=== PATIENT | female | born 1950 | race Caucasian/White ===

== ENCOUNTER 2018-03-23 15:50 | Emergency (ER) | payer MEDICARE, OTHER ==
--- NOTE | 2018-03-23 15:53 | ER Report ---
History and Physical Time Seen By MD: 15:52 HPI/ROS CHIEF COMPLAINT: FACIAL SWELLING HISTORY OF PRESENT ILLNESS: Started with left molar/lower jaw pain on Thursday. Thursday pain was worse. By thursday pt had swelling of the left side of her jaw. Went to [facility] and saw the dentist on Thursday who did xray and started her on amoxil. Pt states the pain and swelling has worsened. Pt using ibuprofen 800mg tid for pain. Pt stats that she is having trouble opening her mouth due to swelling. no fevers. no chills. REVIEW OF SYSTEMS: Constitutional: No fever, no chills. Eyes: No discharge. ENT: No sore throat. + facial swelling Cardiovascular: No chest pain, no palpitations. Respiratory: No cough, no shortness of breath. Gastrointestinal: No abdominal pain, no vomiting. Genitourinary: No hematuria. Musculoskeletal: No back pain. Skin: No rashes, + warmth and swelling to left jaw Neurological: No headache. Allergies: Coded Allergies: No Known Drug Allergies (Unverified , 03/23/18) Home Meds Reported Medications Ibuprofen (IBUPROFEN) 800 Mg Tablet, TID 03/23/18 Losartan Potassium (LOSARTAN POTASSIUM) 25 Mg Tablet, QHS 03/23/18 Atenolol (ATENOLOL) 25 Mg Tablet, QHS 03/23/18 Sertraline Hcl (SERTRALINE HCL) 100 Mg Tablet, QHS 03/23/18 Levothyroxine Sodium (LEVOTHYROXINE SODIUM) 50 Mcg Tablet, QDAY 03/23/18 Amoxicillin (AMOXICILLIN) 500 Mg Capsule, TID 03/23/18 Past Medical/Surgical History pmhx: pvcs, htn,hypothryod Pshx: non contrib Reviewed Nurses Notes: Yes Hx Smoking: No Hx Alcohol Use: No Constitutional Vital Sign - Last 24 Hours 03/23/18 03/23/18 03/23/18 03/23/18 15:50 15:59 16:00 16:05 Temp 98.4 Pulse 82 81 Resp 18 B/P (MAP) 149/88 141/125 (130) 149/88 (108) Pulse Ox 92 93 O2 Delivery Room Air 03/23/18 03/23/18 03/23/18 03/23/18 16:20 16:30 16:35 16:50 Pulse 80 80 74 B/P (MAP) 149/89 (109) Pulse Ox 93 93 92 03/23/18 03/23/18 03/23/18 03/23/18 17:00 17:05 17:35 17:40 Pulse 74 74 74 B/P (MAP) 135/95 (108) Pulse Ox 92 92 92 03/23/18 03/23/18 03/23/18 03/23/18 17:47 17:55 18:00 18:10 Pulse 71 71 B/P (MAP) 153/91 (111) 140/84 (102) Pulse Ox 91 92 03/23/18 03/23/18 03/23/18 03/23/18 18:25 18:30 18:40 18:45 Pulse 69 67 69 B/P (MAP) 157/92 (113) Pulse Ox 91 91 91 03/23/18 19:00 Pulse 68 B/P (MAP) 123/103 (110) Pulse Ox 95 O2 Delivery Room Air Physical Exam General Appearance: The patient is alert, has no immediate need for airway protection and no signs of toxicity. Eyes: Pupils equal and round no pallor or injection, EOMI ENT: no pharyngeal erythema or exudates, Mucous membranes are moist, TM are nl b/l, + visible swelling from preauricular down left jaw to underneath mandible; + trismus; + warmth to swelling without fluctuance; no palpable abscess to gum line Respiratory: There are no retractions, lungs are clear to auscultation. Cardiovascular: Regular rate and rhythm. pulses are equal and symmetrical Gastrointestinal: Abdomen is soft and non tender, no masses, bowel sounds normal, no guarding, no rigidity or rebound Neurological: Cranial nerves II-XII grossly intact, no sensory or motor loss Skin: Warm and dry, no rashes. Musculoskeletal: Neck is supple non tender, no vertebral tenderness Extremities are nontender, non swollen and have full range of motion. DIFFERENTIAL DIAGNOSIS: After history and physical exam differential diagnosis was considered for parotitis, facial cellulitis, ludwigs angina, dental abscess Medical Decision Making Data Points Result Diagram: 03/23/18 1615 03/23/18 1615 Laboratory Hematology Test 03/23/18 16:15 Red Blood Count 4.82 M/uL (4.17-5.56) Mean Corpuscular Volume 81.3 fL (80.0-96.0) Mean Corpuscular Hemoglobin 28.3 pg (26.0-33.0) Mean Corpuscular Hemoglobin Concent 34.8 g/dL (32.0-36.0) Red Cell Distribution Width 13.5 % (11.5-14.5) Mean Platelet Volume 7.0 fL (7.2-11.1) Neutrophils (%) (Auto) 67.5 % (39.4-72.5) Lymphocytes (%) (Auto) 20.5 % (17.6-49.6) Monocytes (%) (Auto) 10.2 % (4.1-12.4) Eosinophils (%) (Auto) 1.4 % (0.4-6.7) Basophils (%) (Auto) 0.4 % (0.3-1.4) Nucleated RBC Relative Count (auto) 0.0 /100WBC Neutrophils # (Auto) 6.8 K/uL (2.0-7.4) Lymphocytes # (Auto) 2.1 K/uL (1.3-3.6) Monocytes # (Auto) 1.0 K/uL (0.3-1.0) Eosinophils # (Auto) 0.1 K/uL (0.0-0.5) Basophils # (Auto) 0.0 K/uL (0.0-0.1) Nucleated RBC Absolute Count (auto) 0.00 K/uL Sodium Level 138 mmol/L (137-145) Potassium Level 3.6 mmol/L (3.5-5.0) Chloride Level 106 mmol/L (98-107) Carbon Dioxide Level 20 mmol/L (22-31) Blood Urea Nitrogen 16 mg/dl (7-18) Creatinine 0.70 mg/dl (0.52-1.04) Glomerular Filtration Rate Calc > 60.0 Random Glucose 220 mg/dl (75-110) Calcium Level 9.4 mg/dl (8.4-10.2) Chemistry Test 03/23/18 16:15 White Blood Count 10.0 k/uL (4.5-11.0) Red Blood Count 4.82 M/uL (4.17-5.56) Hemoglobin 13.7 g/dL (12.0-16.0) Hematocrit 39.2 % (34.0-47.0) Mean Corpuscular Volume 81.3 fL (80.0-96.0) Mean Corpuscular Hemoglobin 28.3 pg (26.0-33.0) Mean Corpuscular Hemoglobin Concent 34.8 g/dL (32.0-36.0) Red Cell Distribution Width 13.5 % (11.5-14.5) Platelet Count 202 K/uL (150-450) Mean Platelet Volume 7.0 fL (7.2-11.1) Neutrophils (%) (Auto) 67.5 % (39.4-72.5) Lymphocytes (%) (Auto) 20.5 % (17.6-49.6) Monocytes (%) (Auto) 10.2 % (4.1-12.4) Eosinophils (%) (Auto) 1.4 % (0.4-6.7) Basophils (%) (Auto) 0.4 % (0.3-1.4) Nucleated RBC Relative Count (auto) 0.0 /100WBC Neutrophils # (Auto) 6.8 K/uL (2.0-7.4) Lymphocytes # (Auto) 2.1 K/uL (1.3-3.6) Monocytes # (Auto) 1.0 K/uL (0.3-1.0) Eosinophils # (Auto) 0.1 K/uL (0.0-0.5) Basophils # (Auto) 0.0 K/uL (0.0-0.1) Nucleated RBC Absolute Count (auto) 0.00 K/uL Glomerular Filtration Rate Calc > 60.0 Calcium Level 9.4 mg/dl (8.4-10.2) EKG/Imaging Imaging + abcess along the lateral surface of the left mandibular body 1.9 x 1.4 x 0.3cm with swelling to overlying soft tiussues and extending inferiorly anterior neck and soft tissue superficial and deep to the platysma. small periapical lucency about the root of the left second omandibbular premolar which could be a periapical abscess. ED Course/Re-evaluation Clinical Indication for ER IV: IV Access ED Course Labs, ct. Abx 03/23/2018 5:30:49 pm Pt back from CT. Pain improved with the morphine but not gone. Will remedicate. Lab also yohana second blood cultures so will start IV abx 03/23/2018 6:14:[address] Jamil and reviewed pts imaging. [place] pt would benefit from being transfered to another facility that has FS. Spoke with pt who understands she may require transfer. 03/23/2018 6:26:42 pm Awaiting to hear back from [place] physician for possible acceptance. 03/23/2018 6:44:[address] Andrade, [facility] [place], is in the [place] in [place] so we are awaiting his completion. [address] Andrade. Accepts pt to take to OR tonight. He feels pt is safe to go by private vehicle. Pt also prefers private vehicle due to she is concerned about the cost of transfer by ambulance. Pts airway is patent. will be driivkatrin. Pt understands she is NPO. Pt is to go directly to [facility]. Decision to Disposition Date: Mar 23, 2018 Decision to Disposition Time: 18:38 Depart Departure Latest Vital Signs Vital Signs Date Time Temp Pulse Resp B/P (MAP) Pulse Ox O2 Delivery O2 Flow Rate FiO2 03/23/18 19:00 68 123/103 (110) 95 Room Air 03/23/18 15:50 98.4 18 Impression: Primary Impression: Mandibular abscess Additional Impressions: Failure of outpatient treatment Dental abscess Condition: Condition Unchanged Disposition: [facility] TO [facility] Problem Qualifiers BEBO JENSEN DO Mar 23, 2018 15:53
[2018-03-23] MEDS ORDERED: LOSA25TA52 (16:05)
[2018-03-23] MEDS ORDERED: SERT-181 (16:05)
[2018-03-23] MEDS ORDERED: AMOX-362 (16:05)
[2018-03-23] MEDS ORDERED: ATEN-65 (16:05)
[2018-03-23] MEDS ORDERED: LEVO50TA86 (16:05)
[2018-03-23] MEDS ORDERED: IBUP800T37 (16:05)
[2018-03-23] MEDS ORDERED: CLINDAMYCIN 600 MG/4 ML 600 MG in NS(*) 0.9% 100 ML BAG 100 ML IVPB ONE (16:15)
[2018-03-23] MEDS ORDERED: MORPHINE 4 MG/ML SDV IVP ONE ×3 (16:15→18:50)
[2018-03-23] MEDS ORDERED: IOPAMIDOL 76% 75 ML INFUS BTL 75 ML ONE (16:21)
[2018-03-23 16:29] LABS: PLATELET COUNT, AUTOMATED 202 K/uL (150-450)
[2018-03-23] MEDS ORDERED: CLINDAMYCIN(*) 600 MG/NS 50 ML 50 ML IVPB ONE (17:20)
--- NOTE | 2018-03-23 17:54 | RADIOLOGY IMAGING REPORT ---
FACILITY: [facility] - [place] PATIENT NAME: Arleth Gonzales : 1950 MR: [id number] V: [id number] EXAM DATE: ORDERING PHYSICIAN: BEBO JENSEN TECHNOLOGIST: Location: [facility] [place] Patient: Arleth Gonzales : 1950 Visit/Account:[id number] Date of Sevice: 03/23/2018 EXAMINATION: CT neck with IV contrast HISTORY: Left-sided facial swelling from ear to upper neck. COMPARISON: None. TECHNIQUE: Spiral scan was obtained from the hard palate through the upper chest during injection o f nonionic iodinated intravenous contrast. Sagittal and coronal reformatted images are also submitte d. CONTRAST: 75 mL of IV Isovue-370 One of the following dose optimization techniques was utilized in the performance of this exam: Autom ated exposure control; adjustment of the mA and/or kV according to the patient's size; or use of an i terative reconstruction technique. Specific details can be referenced in the facility's radiology C T exam operational policy. FINDINGS: Masses/lesions: Abscess along the lateral surface of the left mandibular body measuring 1.9 x 1.4 x 0.3 cm. There is swelling in the soft tissues overlying the abscess and extending inferiorly in the a nterior neck. Small periapical lucency about the root of the left second mandibular premolar. Airway: Normal. Vessels: Minimal calcified plaque at the aortic arch. Musculoskeletal / Body wall: Multilevel disc and facet degenerative changes in the cervical spine. Lymph node assessment: Mild prominence of the left level 1 cervical lymph nodes, likely reactive. Visualized orbits / brain / paranasal sinuses: Negative. Upper chest: Negative. IMPRESSION: Abscess along the lateral surface of the left mandibular body measuring 1.9 x 1.4 x 0.3 cm. There is swelling in the overlying soft tissues and extending inferiorly anterior neck soft tissues superficia l and deep to the platysma. Small periapical lucency about the root of the left second mandibular premolar. This could represent a periapical abscess, granuloma, or cyst. Mild enlargement of the left level 1 cervical lymph nodes, likely reactive. Report Dictated By: Joaquin Aguilar MD at 03/23/2018 5:38 PM Report E-Signed By: Joaquin Aguilar MD at 03/23/2018 5:50 PM WSN:[id number]
--- NOTE | 2018-03-23 18:02 | RADIOLOGY IMAGING REPORT ---
FACILITY: [facility] PATIENT NAME: Arleth Gonzales : 1950 MR: [id number] V: [id number] EXAM DATE: ORDERING PHYSICIAN: BEBO JENSEN TECHNOLOGIST: Location: [facility] Patient: Arleth Gonzales : 1950 Visit/Account:[id number] Date of Sevice: 03/23/2018 EXAMINATION: CT facial bone with IV contrast HISTORY: Left-sided facial swelling from ear to upper neck. COMPARISON: CT of the neck performed at the same time. TECHNIQUE: Axial images were obtained from the superior aspect of the orbits through the inferior as pect of mandible with IV contrast. Coronal and sagittal reformatted images were obtained from the axi al source data. CONTRAST: 75 mL of IV Isovue-370 One of the following dose optimization techniques was utilized in the performance of this exam: Autom ated exposure control; adjustment of the mA and/or kV according to the patient's size; or use of an i terative reconstruction technique. Specific details can be referenced in the facility's radiology C T exam operational policy. FINDINGS: Soft Tissues: Abscess along the lateral surface of the left mandibular body measuring 1.9 x 1.6 x 0.3 cm. Swelling in the soft tissues overlying the abscess along the left cheek and extending inferiorly in the anterior neck, superficial and deep to the platysma. Mild prominence of the left level 1 cerv ical lymph nodes, likely reactive. Mandible / TMJ: Small periapical lucency about the root of the left mandibular second premolar. Maxillae / pterygoid plates: Negative. Zygoma / zygomatic arches: Negative. Orbits: Negative. Nasal bones / nasal septum: Slight leftward deviation of the upper nasal septum and slight rightward deviation of the lower nasal septum. Frontal bones: Negative. Sinuses: Trace mucosal thickening scattered in the paranasal sinuses. Visualized brain: Negative. IMPRESSION: Abscess along the lateral surface of the left mandibular body measuring 1.9 x 1.6 x 0.3 cm with overl maricel soft tissue swelling which extends inferiorly in the anterior neck and superiorly in the subcuta neous soft tissues of the left cheek. Small periapical lucency about the root of the left mandibular second premolar which may represent a periapical abscess, cyst, or granuloma. Report Dictated By: Joaquin Aguilar MD at 03/23/2018 5:50 PM Report E-Signed By: Joaquin Aguilar MD at 03/23/2018 5:58 PM WSN:[id number]
[2018-03-23] MEDS ORDERED: fentaNYL CITR 100 MCG/2 ML AMP IVP ONE (18:35)
[2018-03-23] MEDS ORDERED: KETOROLAC 15 MG/ML VIAL IVP ONE (18:50)
[2018-03-23 19:00] VITALS: BP 123/103
== END 2018-03-23 19:28 | disposition short-term general hospital (02) ==
LOC: ER 16:03
DX: M27.2 Inflammatory conditions of jaws (principal); K04.7 Periapical abscess without sinus
CPT/HCPCS: 36415; 70487; 70491; 85025; 87040; 96361; 96374; 96375; 96376; 99285; J1885; J2270; J3490; Q9967; 82310; 82374; 82435; 82565; 82947; 84132; 84295; 84520